=== PATIENT | female | born 1930 | race Caucasian/White ===

== ENCOUNTER 2020-09-13 05:44 | Emergency (ER) | payer MEDICARE, OTHER ==
[~2020-09-13] VITALS: Ht 165.1 cm; Wt 61.9 kg
[~2020-09-13 05:44] MED LIST: APIX5TAB PO; APIX5TAB4 PO
[2020-09-13 05:47] VITALS: BP 107/88
--- NOTE | 2020-09-13 05:56 | NUR ---
PT PRESENTS TO THE ER FOR A DOG BITE THAT HAPPENED 10 DAYS AGO, PT STATES SHE WAS TRIMMING HER DOG AND SHE THINKS SHE GOT TOO CLOSE TO THE DOGS PRIVATE PARTS AND THEN HER DOG BIT HER. PT GOT BIT ON HER RIGHT WRIST AND COMPLAINING OF SWELLING AND PAIN IN HER RIGHT WRIST
[2020-09-13] MEDS ORDERED: HYDROcodone/APAP 5/325 TABLET ONE (06:13)
[2020-09-13] MEDS ORDERED: NAPROXEN 500 MG TABLET ONE (06:13)
[2020-09-13] MEDS ORDERED: HYDROcodone/APAP 5/325 TABLET PO ONE (06:30)
[2020-09-13] MEDS ORDERED: NAPROXEN 500 MG TABLET PO ONE (06:30)
== END 2020-09-13 06:57 | disposition home or self-care (01) ==
LOC: ED 06:14
DX: S60.211A Contusion of right wrist, initial encounter (principal); S61.551A Open bite of right wrist, initial encounter; Z86.711 Personal history of pulmonary embolism; W54.0XXA Bitten by dog, initial encounter; Y93.89 Activity, other specified; Y92.89 Other specified places as the place of occurrence of the external cause; Y99.8 Other external cause status
CPT/HCPCS: 29125; 99283